=== PATIENT | female | born 1985 | race Caucasian/White ===

== ENCOUNTER 2016-06-06 14:08 | Emergency (ER) | payer OTHER ==
[~2016-06-06 14:08] MED LIST: CIPRO100 MG PO; CIPRO250 MG PO; HYDROCODONE/APA1 CAP PO; LANTUS100 U/ML SC; MULTIVITAMIN1 TAB PO; NOVOLOG100 U/M SQ; VITAMIN D1000 UNI1 PO
[2016-06-06] MEDS ORDERED: HUMALOG (14:30)
[2016-06-06] MEDS ORDERED: BACLOFEN10 M1 PO (14:31)
[2016-06-06] MEDS ORDERED: NATURE THROID PO (14:31)
[2016-06-06 14:36] LABS: URINE BILIRUBIN NEGATIVE (NEG); URINE BLOOD LARGE (NEG); URINE GLUCOSE (UA) NEGATIVE (NEG); URINE KETONE SMALL (NEG); URINE LEUKOCYTE ESTERASE POSITIVE (NEG); URINE NITRITE NEGATIVE (NEG); URINE PH 6.5 (5.0-8.0); URINE PROTEIN NEGATIVE (NEG); URINE SPECIFIC GRAVITY 1.005 (1.003-1.030)
[2016-06-06 14:39] LABS: URINE APPEARANCE HAZY; URINE COLOR YELLOW
[2016-06-06 14:45] LABS: URINE RBC 20-25 /[HPF] (0-5)
[2016-06-06 14:46] LABS: URINE BACTERIA 1+; URINE WBC 20-30 /[HPF] (0-5)
[2016-06-06 15:20] LABS: BASO % 0.5 % (0-2); BASO ABSOLUTE COUNT 0.1 tho/cmm (0.0-0.2); EOS % 1.5 % (0-7); EOSINOPHIL ABSOLUTE COUNT 0.2 tho/cmm (0.0-0.7); HGB-HEMOGLOBIN 13.7 gm/dl (12.0-15.5); IMMATURE GRANULOCYTES ABSOLUTE 0.02 tho/cmm (0-0.03); IMMATURE GRANULOCYTES PERCENT 0.2 % (0-0.3); LYMPH % 18.1 % (20-45); LYMPH ABSOLUTE COUNT 1.9 tho/cmm (0.8-4.5); MCHC MEAN CORPUSCULAR HGB CONC 34.3 % (32.0-36.0); MCV (MEAN CELL VOLUME) 90.5 fl (82.0-96.0); MEAN PLATELET VOLUME 9.6 cmc (9.4-12.4); MONO % 5.5 % (0-12); MONOCYTE ABSOLUTE COUNT 0.6 tho/cmm (0.0-1.2); NEUTROPHIL ABSOLUTE COUNT 7.8 tho/cmm (1.6-8.0); NEUTROPHIL-AUTOMATED 7.8 tho/cmm (1.6-8.0); NEUTROPHILS % 74.2 % (40-80); PLATELET COUNT 279 tho/cmm (150-450); RED BLOOD COUNT 4.42 mil/cmm (4.00-5.20); RED CELL DISTRIBUTION WIDTH 11.5 % (12.4-16.4); WHITE BLOOD COUNT 10.5 tho/cmm (4.0-10.0)
[2016-06-06 15:35] LABS: ANION GAP 13 mmol/L (0-20); BLOOD UREA NITROGEN 17 mg/dl (6-24); CARBON DIOXIDE-VENOUS 23 mmol/L (22-32); CHLORIDE 106 mmol/l (96-110); CREATININE 0.73 mg/dl (0.50-1.10); GLUCOSE 146 mg/dL (70-110); SODIUM 138 mmol/L (135-145); eGFR VALUE FOR BLACK >90 mL/Min
[2016-06-06] MEDS ORDERED: KEFLEX500 M4 PO (16:05)
[2016-06-06] MEDS ORDERED: DIFLUCAN150 M1 PO (16:13)
== END 2016-06-06 16:20 ==
LOC: EDMED 14:08
PROVIDERS: Emergency Medicine
DX: R31.9 Hematuria, unspecified (principal); E11.9 Type 2 diabetes mellitus without complications; E03.9 Hypothyroidism, unspecified; Z79.4 Long term (current) use of insulin
CPT/HCPCS: J1885; J2405; J7030